=== PATIENT | female | born 1980 | race Caucasian/White ===

== ENCOUNTER → 2017-11-15 | Outpatient (CLI) | payer OTHER | LOC: M.CT 13:32 | DX: N20.0 Calculus of kidney (principal); H57.8 Other specified disorders of eye and adnexa; L29.8 Other pruritus; Z98.890 Other specified postprocedural states; Z90.710 Acquired absence of both cervix and uterus; K64.9 Unspecified hemorrhoids ==

== ENCOUNTER → 2018-10-31 | Outpatient (CLI) | payer OTHER | LOC: M.NUC 06:53 | DX: R11.2 Nausea with vomiting, unspecified (principal); R68.81 Early satiety ==

== ENCOUNTER → 2020-01-18 | Outpatient (CLI) | payer OTHER | LOC: M.ULTRA 09:15 | DX: R10.9 Unspecified abdominal pain (principal) ==